=== PATIENT | female | born 1940 | race Caucasian/White ===

== ENCOUNTER → 2018-05-09 12:18 | Outpatient (CLI) | payer MEDICARE, SELFPAY ==
--- NOTE | 2018-05-09 | DI.MG.S_ITS ---
BILATERAL DIGITAL SCREENING MAMMOGRAM 3D/2D WITH CAD: 05/09/2018 CLINICAL: Routine screening. Family history of breast cancer. Comparison is made to exams dated: 05/01/2017 mammogram, 03/08/2016 mammogram, and 12/12/2014 mammogram - [facility]. There are scattered fibroglandular elements in both breasts. Current study was also evaluated with a Computer Aided Detection (CAD) system. There are benign vascular calcifications in both breasts. There are mole markers on both breasts. No significant masses, calcifications, or other findings are seen in either breast. There has been no significant interval change. IMPRESSION: There is no mammographic evidence of malignancy. A 1 year screening mammogram is recommended. This exam was interpreted at Station ID: [id number]. NOTE: For mammograms, a report in lay terms will be sent to the patient. Approximately 15% of breast malignancies will not be visualized mammographically. In the management of a palpable breast mass, a negative mammogram must not discourage biopsy of a clinically suspicious lesion. Electronically Signed By: Ki bonilla/angie:05/11/2018 09:12:00 letter sent: Normal Exam ACR BI-RADS Category 2: Benign Finding(s) 3342F
== END ==
PROVIDERS: Visit Provider Physician Assistant
DX: Z12.31 Encounter for screening mammogram for malignant neoplasm of breast (principal); Z80.3 Family history of malignant neoplasm of breast
CPT/HCPCS: 77063; 77067

== ENCOUNTER → 2018-05-19 14:47 | Outpatient (REF) | payer MEDICARE, SELFPAY ==
[2018-05-19 15:01] LABS: Add Manual Diff / Slide Review NO; Basophils Percent Auto 1.2 % (0-2); Eosinophils Percent Auto 4.2 % (2-4); Hematocrit 37.7 % (36-46); Hemoglobin 12.5 g/dL (12.0-16.0); Lymphocytes Percent Auto 12.2 % (25-40); Mean Corpuscular HGB Conc 33.1 % (30-36); Mean Corpuscular Hemoglobin 27.5 PG (26-34); Mean Corpuscular Volume 83.2 fL (80-100); Monocytes Percent Auto 8.1 % (3-14); Neutrophils Absolute Auto 7400 /uL (1500-7000); Neutrophils Percent Auto 74.3 % (50-75); Platelet Count 285 X10^3/uL (150-400); Red Blood Cell Count 4.53 X10^6/uL (4.0-5.2); Red Cell Distribution Width 14.6 % (11.6-14.8)
[2018-05-19 15:09] LABS: Amylase 34 U/L (30-110); Lipase 74 U/L (23-300)
== END ==
LOC: LAB 14:47
PROVIDERS: Visit Provider Physician Assistant
DX: R10.12 Left upper quadrant pain (principal)
CPT/HCPCS: 82150; 83690; 85025

== ENCOUNTER → 2019-05-20 09:20 | Outpatient (CLI) | payer MEDICARE, SELFPAY ==
--- NOTE | 2019-05-20 | DI.MG.S_ITS ---
BILATERAL DIGITAL SCREENING MAMMOGRAM 3D/2D WITH CAD: 05/20/2019 CLINICAL: Routine screening. Comparison is made to exams dated: 05/09/2018 mammogram, 05/01/2017 mammogram, and 03/08/2016 mammogram - [facility]. There are scattered fibroglandular elements in both breasts. Current study was also evaluated with a Computer Aided Detection (CAD) system. There are benign vascular calcifications in both breasts. There are mole markers on both breasts. No significant masses, calcifications, or other findings are seen in either breast. There has been no significant interval change. IMPRESSION: There is no mammographic evidence of malignancy. A 1 year screening mammogram is recommended. This exam was interpreted at Station ID: [id number]. NOTE: For mammograms, a report in lay terms will be sent to the patient. Approximately 15% of breast malignancies will not be visualized mammographically. In the management of a palpable breast mass, a negative mammogram must not discourage biopsy of a clinically suspicious lesion. Electronically Signed By: Alonso beck/angie:05/20/2019 11:12:42 letter sent: Normal Exam ACR BI-RADS Category 2: Benign Finding(s) 3342F
== END ==
PROVIDERS: Visit Provider Student in an Organized Health Care Education/Training Program
DX: Z12.31 Encounter for screening mammogram for malignant neoplasm of breast (principal)
CPT/HCPCS: 77063; 77067

== ENCOUNTER → 2020-05-29 15:34 | Outpatient (CLI) | payer OTHER, SELFPAY ==
--- NOTE | 2020-05-29 15:38 | DI.MG.S_ITS ---
BILATERAL DIGITAL SCREENING MAMMOGRAM 3D/2D WITH CAD: 05/29/2020 CLINICAL: Routine screening. Family history of breast cancer. Comparison is made to exams dated: 05/09/2018 mammogram, 05/01/2017 mammogram, 03/08/2016 mammogram, 12/12/2014 mammogram, and 05/20/2019 mammogram - [facility]. There are scattered fibroglandular elements in both breasts. Current study was also evaluated with a Computer Aided Detection (CAD) system. There are benign vascular calcifications in both breasts. There are mole markers on both breasts. No significant masses, calcifications, or other findings are seen in either breast. There has been no significant interval change. IMPRESSION: BENIGN There is no mammographic evidence of malignancy. A 1 year screening mammogram is recommended. This exam was interpreted at Station ID: [id number]. NOTE: For mammograms, a report in lay terms will be sent to the patient. Approximately 15% of breast malignancies will not be visualized mammographically. In the management of a palpable breast mass, a negative mammogram must not discourage biopsy of a clinically suspicious lesion. Electronically Signed By: Galdino wesley/angie:05/29/2020 16:53:45 letter sent: Normal Exam ACR BI-RADS Category 2: Benign Finding(s) 3342F
== END ==
PROVIDERS: Referring Provider Student in an Organized Health Care Education/Training Program; Visit Provider Student in an Organized Health Care Education/Training Program
DX: Z12.31 Encounter for screening mammogram for malignant neoplasm of breast (principal); Z80.3 Family history of malignant neoplasm of breast
CPT/HCPCS: 77063; 77067

== ENCOUNTER → 2020-10-03 13:21 | Outpatient (ROUT) | payer OTHER, SELFPAY ==
[2020-10-03 13:39] LABS: Alanine Aminotransferase 15 IU/L (<35); Albumin 3.9 g/dL (3.5-5.0); Albumin Globulin Ratio 1.6 (1.0-2.8); Alkaline Phosphatase 77 U/L (38-126); Aspartate Aminotransferase 26 IU/L (14-36); BUN Creatinine Ratio 21.5 (6-22); Bilirubin Total 0.6 mg/dL (0.2-1.3); Blood Urea Nitrogen 17 mg/dL (7-17); Calcium 9.3 mg/dL (8.4-10.2); Carbon Dioxide 29 mmol/L (22-32); Chloride 98 mmol/L (98-107); Cholesterol 177 mg/dL (140-199); Estimated Glomerular Filt Rate > 60.0 mL/min (>60); Globulin 2.5 g/dL (1.7-4.1); Glucose 104 mg/dL (80-110); HDL Cholesterol 63 mg/dL (40-60); HEMOLYSIS < 15 (0-50); LDL Cholesterol Calculated 94 mg/dL (<100); Potassium 4.3 mmol/L (3.4-5.1); Sodium 135 mmol/L (137-145); Total Protein 6.4 g/dL (6.3-8.2); Triglycerides 98 mg/dL (35-150)
== END ==
PROVIDERS: Visit Provider Student in an Organized Health Care Education/Training Program
DX: I10 Essential (primary) hypertension (principal); E78.49 Other hyperlipidemia; R73.01 Impaired fasting glucose
CPT/HCPCS: 80053; 80061

== ENCOUNTER → 2021-05-31 13:07 | Outpatient (CLI) | payer OTHER, SELFPAY ==
--- NOTE | 2021-05-31 13:10 | DI.MG.S_ITS ---
BILATERAL DIGITAL SCREENING MAMMOGRAM 3D/2D WITH CAD: 05/31/2021 CLINICAL: Routine screening. Family history of breast cancer. Comparison is made to exams dated: 05/29/2020 mammogram, 05/20/2019 mammogram, and 05/09/2018 mammogram - [facility]. There are scattered fibroglandular elements in both breasts. Current study was also evaluated with a Computer Aided Detection (CAD) system. There are benign vascular calcifications in both breasts. There are mole markers on both breasts. No significant masses, calcifications, or other findings are seen in either breast. There has been no significant interval change. IMPRESSION: BENIGN There is no mammographic evidence of malignancy. A 1 year screening mammogram is recommended. This exam was interpreted at Station ID: [id number]. NOTE: For mammograms, a report in lay terms will be sent to the patient. Approximately 15% of breast malignancies will not be visualized mammographically. In the management of a palpable breast mass, a negative mammogram must not discourage biopsy of a clinically suspicious lesion. Electronically Signed By: Alonso beck/angie:05/31/2021 15:11:35 letter sent: Normal Exam ACR BI-RADS Category 2: Benign Finding(s) 3342F
== END ==
PROVIDERS: Referring Provider Student in an Organized Health Care Education/Training Program; Visit Provider Student in an Organized Health Care Education/Training Program
DX: Z12.31 Encounter for screening mammogram for malignant neoplasm of breast (principal)
CPT/HCPCS: 77063; 77067

== ENCOUNTER → 2022-04-10 14:33 | Outpatient (CLI) | payer OTHER, SELFPAY ==
--- NOTE | 2022-04-10 | DI.RAD.S_ITS ---
PROCEDURE: XR KNEE LT 3V INDICATIONS: left knee pain TECHNIQUE: 3 views of the knee were acquired. COMPARISON: [facility], , KNEE 1-2 VIEWS RIGHT, 12/16/2011, 14:49. FINDINGS: Bones: Partially seen right knee arthroplasty in expected position. Moderate degenerative changes of the left knee. No acute fracture or dislocation. The lateral compartment is preferentially affected. Soft tissues: Small left knee joint effusion. IMPRESSION: Moderate left knee arthrosis preferentially affecting the lateral compartment. Small knee joint effusion. If there is high concern for further derangement, consider MRI evaluation. Dictated by: Marcin Fiore M.D. on 04/10/2022 at 16:06 Approved by: Marcin Fiore M.D. on 04/10/2022 at 16:07
== END ==
PROVIDERS: PCP Student in an Organized Health Care Education/Training Program; Referring Provider Student in an Organized Health Care Education/Training Program; Visit Provider Student in an Organized Health Care Education/Training Program
DX: M17.12 Unilateral primary osteoarthritis, left knee (principal); M25.462 Effusion, left knee; M25.562 Pain in left knee
CPT/HCPCS: 73562

== ENCOUNTER → 2022-06-06 11:33 | Outpatient (CLI) | payer OTHER, SELFPAY ==
--- NOTE | 2022-06-06 | DI.MG.S_ITS ---
BILATERAL DIGITAL SCREENING MAMMOGRAM 3D/2D WITH CAD: 06/06/2022 CLINICAL: Routine screening. Family history of breast cancer. Comparison is made to exams dated: 05/31/2021 mammogram, 05/29/2020 mammogram, and 05/20/2019 mammogram - [facility]. There are scattered areas of fibroglandular density in both breasts (category b / 25%-50% glandular tissue). Current study was also evaluated with a Computer Aided Detection (CAD) system. There are benign vascular calcifications in both breasts. There are mole markers on both breasts. No significant masses, calcifications, or other findings are seen in either breast. There has been no significant interval change. IMPRESSION: BENIGN There is no mammographic evidence of malignancy. A 1 year screening mammogram is recommended. Based on the Tyrer Cuzick model (a risk assessment model) the patient's lifetime risk is 0.5% and her 10 year risk is 0.0%. According to the ACR, ACS, and NCCN guidelines, an annual breast MRI exam along with mammogram is recommended if the patient's lifetime risk is 20% or greater. This exam was interpreted at Station ID: [id number]. NOTE: For mammograms, a report in lay terms will be sent to the patient. Approximately 15% of breast malignancies will not be visualized mammographically. In the management of a palpable breast mass, a negative mammogram must not discourage biopsy of a clinically suspicious lesion. Electronically Signed By: Marcin salcido/angie:06/06/2022 12:31:12 letter sent: Normal Exam ACR BI-RADS Category 2: Benign Finding(s) 3342F
== END ==
PROVIDERS: PCP Student in an Organized Health Care Education/Training Program; Referring Provider Student in an Organized Health Care Education/Training Program; Visit Provider Student in an Organized Health Care Education/Training Program
DX: Z12.31 Encounter for screening mammogram for malignant neoplasm of breast (principal); Z80.3 Family history of malignant neoplasm of breast
CPT/HCPCS: 77063; 77067

== ENCOUNTER 2022-09-18 15:36 | Emergency (ER) | payer OTHER, SELFPAY ==
[2022-09-18 15:45] VITALS: BP 186/96; PULSE 74; RESP 16; TEMP 36.7; O2SAT 97; BMI 25.4
--- NOTE | 2022-09-18 15:53 | ED_ITS ---
HPI - Fall <Angelito Chan PA-C - Last Filed: 09/18/22 17:33> General Chief Complaint: Fall Stated Complaint: Facial lac/bruising after fall Time Seen by Provider: 09/18/22 15:51 History of Present Illness HPI Narrative: This is a 82-year-old female presents emergency department due to tripping over a rug earlier this morning and falling and hitting her face on the ground. She is not on blood thinners. She would not lose consciousness. She denies any other pain to the rest of her body. She is only concerned with the bruising around her eyes as she was wearing glasses. No changes in vision and no other concerns. Related Data Home Medications Medication Instructions Recorded Confirmed LEVOTHYROXINE SODIUM 100 mcg PO QDAY@0600 ##0 11/27/11 albuterol sulfate 90 mcg/actuation 2 puff INH PRN ##8.5 11/27/11 aerosol inhaler (Proventil HFA) beclomethasone dipropionate 80 1 puff INH BID #1 inh 11/27/11 mcg/actuation aerosol inhaler (Qvar) ibuprofen 200 mg tablet 2 tabs PO BID ##0 11/27/11 omeprazole 20 mg capsule,delayed 20 mg PO Q DAY ##0 11/27/11 release paroxetine HCl 10 mg tablet (Paxil) mg PO HS ##0 11/27/11 zolpidem 5 mg tablet 5 mg PO HSP ##0 11/27/11 Allergies Allergy/AdvReac Type Severity Reaction Status Date / Time No Known Drug Allergies Allergy Unknown Verified 09/18/22 15:51 codeine AdvReac Mild N/V Verified 09/18/22 15:51 tramadol AdvReac Mild NAUSEA Verified 09/18/22 15:51 Review of Systems <Angelito Chan PA-C - Last Filed: 09/18/22 17:33> Review of Systems Narrative: GENERAL: Denies chills, fatigue, malaise, fever, sweats. HEENT: Facial pain, Denies sinus pain, ear pain, sore throat, difficulty swallowing, dizziness. RESPIRATORY: Denies dyspnea, cough, wheezing, hemoptysis, sputum. CARDIOVASCULAR: Denies chest pain, palpitations, orthopnea, edema, GASTROINTESTINAL: Denies nausea, vomiting, abdominal pain, diarrhea, constipation, melena. : Denies dysuria, frequency, incontinence, hematuria, urinary retention. MUSCULOSKELETAL: denies weakness, joint pain, or bony pain SKIN: Denies rash, skin lesions, or other NEUROLOGIC: Denies weakness, headache, numbness, change in speech, confusion, seizures, incoordination. PSYCHIATRIC: No concerning psychosocial issues. 12 point review of systems is negative except for those stated above Patient History <Angelito Chan PA-C - Last Filed: 09/18/22 17:33> Social History Smoking Status: Never smoker Exam <Angelito Chan PA-C - Last Filed: 09/18/22 17:33> Narrative Exam Narrative: GENERAL: Well-developed patient, in mild distress. HEAD: Mild tenderness to palpation to the bridge of the nose as well as a bilateral maxillary bones EYES: Pupils equal round and reactive. Extraocular motions intact. No scleral icterus. No injection or drainage. ENT: Nose without bleeding, purulent drainage. Throat without erythema, tonsillar hypertrophy or exudate. Airway patent. NECK: Trachea midline. Non tender CARDIOVASCULAR: Regular rate and rhythm without murmurs, gallops, or rubs. RESPIRATORY: Clear to auscultation. Breath sounds equal bilaterally. No wheezes, rales, or rhonchi. GASTROINTESTINAL: Abdomen soft, non-tender, nondistended. EXTREMITIES: No edema or joint tenderness. BACK: Nontender without deformity or crepitance. No flank tenderness. NEURO: AOx3. Cranial nerves 2-12 intact SKIN: Ecchymosis of the bridge of nose. Mild edema to the upper lip, no breaks in the skin Initial Vital Signs Initial Vital Signs: Vital Signs Temperature 98.0 F 09/18/22 15:45 Pulse Rate 74 09/18/22 15:45 Respiratory Rate 16 09/18/22 15:45 Blood Pressure 186/96 H 09/18/22 15:45 Pulse Oximetry 97 09/18/22 15:45 Oxygen Delivery Method Room Air 09/18/22 15:45 <Shaheed Colbert MD - Last Filed: 09/26/22 03:28> Initial Vital Signs Initial Vital Signs: Vital Signs Temperature 98.0 F 09/18/22 15:45 Pulse Rate 74 09/18/22 15:45 Respiratory Rate 16 09/18/22 15:45 Blood Pressure 186/96 H 09/18/22 15:45 Pulse Oximetry 97 05/10/23 15:45 Oxygen Delivery Method Room Air 09/18/22 15:45 Course <Angelito Chan PA-C - Last Filed: 09/18/22 17:33> Orders Ordered: ED Orders 09/18/22 16:10 CT facial bones wo con Stat CT head/brain wo con Stat Vital Signs Vital signs: Vital Signs - 8 hr 09/18/22 15:45 09/18/22 16:56 Temperature 98.0 F Pulse Rate 74 75 Respiratory Rate 16 Blood Pressure 186/96 H 196/93 H Pulse Oximetry 97 98 Oxygen Delivery Method Room Air Room Air <Shaheed Colbert MD - Last Filed: 09/26/22 03:28> Orders Ordered: ED Orders 09/18/22 16:10 CT facial bones wo con Stat CT head/brain wo con Stat Vital Signs Vital signs: Vital Signs - 8 hr 09/18/22 15:45 09/18/22 16:56 Temperature 98.0 F Pulse Rate 74 75 Respiratory Rate 16 Blood Pressure 186/96 H 196/93 H Pulse Oximetry 97 98 Oxygen Delivery Method Room Air Room Air MDM - Fall <Angelito Chan PA-C - Last Filed: 09/18/22 17:33> Imaging Data CT face: Radiologist's Impression: [place] [address] CT Scan Report Signed Patient: Kaylynn Wheeler MR#: [id number] : 1940 Acct:[id number] Age/Sex: 82 / F Date of Service: 09/18/22 Loc: ED Accession Number: [id number] ?? Procedure: CT facial bones wo con Ordering Provider: Angelito Chan P.A-C PROCEDURE:? CT FACIAL BONES WO CON ? INDICATIONS:? Fall on face ? TECHNIQUE:? Noncontrast 2.5 mm thick axial images acquired from the mandible through the frontal sinuses, with coronal and sagittal reformatting.? For radiation dose reduction, the following was used:? automated exposure control, adjustment of mA and/or kV according to patient size.? ? COMPARISON:? [facility], CT, CT HEAD/BRAIN WO CON, 09/18/2022, 16:16. ? FINDINGS:? Image quality:? There is artifact associated with the metallic hardware. ? Artifact from the metallic hardware is reduced by metal reconstruction algorithm.? ? Bones and teeth:? Orbital yanez are intact.? Sinus yanez show no fracture or deformity.? Nasal bones and septum are intact.? Chronic mild leftward nasal septal deviation can be seen.? Visualized portions of the mandible demonstrate no fractures or sub luxation.? Zygomatic arches are intact.? Pterygoid plates are intact.? Visualized portions of the skull base and auditory canals are intact.? ? At least moderate cervical spine degenerative change is partially seen. ? Sinuses:? There is layering blood within the right maxillary sinus.? Mild areas of mucosal thickening can be seen elsewhere within paranasal sinuses. ? The ostiomeatal complexes are patent, yet they are constitutionally narrowed, with bilateral Jeb cells.? ? Soft tissues:? No edema, masses, or fluid collections.? No enlarged lymph nodes.? No soft tissue lacerations or debris.? ? Vascular:? Visualized vascular structures appear normal in the absence of contrast.? Bony vascular foramina and canals are intact.? IMPRESSION:? No displaced facial bone fracture can be seen. ? Layering blood can be seen within the right maxillary sinus. ? Constitutionally narrowed ostiomeatal complexes noted. ? ? Dictated by: Aime Hammond M.D. on 09/18/2022 at 15:39 ? ? Approved by: Aime Hammond M.D. on 09/18/2022 at 15:41 ? CT scan - head: Radiologist's Impression: [address] [address] [address] Scan Report Signed Patient: Kaylynn Wheeler MR#: [id number] : 1940 Acct:[id number] Age/Sex: 82 / F Date of Service: 09/18/22 Loc: ED Accession Number: [id number] ?? Procedure: CT head/brain wo con Ordering Provider: Angelito Chan P.A-C PROCEDURE:? CT HEAD/BRAIN WO CON ? INDICATIONS:? Fall hit head ? TECHNIQUE:? Noncontrast 4.5 mm thick angled axial sections acquired from the foramen magnum to the vertex, with coronal and sagittal reformats.? For radiation dose reduction, the following was used:? automated exposure control, adjustment of mA and/or kV according to patient size.? ? COMPARISON:? [facility], CT, CT FACIAL BONES WO CON, 09/18/2022, 16:16. ? FINDINGS:? Image quality:? Excellent.? ? CSF spaces:? Basal cisterns are patent.? No extra-axial fluid collections.? The ventricles are symmetric in size and shape.? ? Brain:? No intracranial bleeds or masses.? There is cerebral volume loss for age, with resultant ventricular and sulcal prominence.? There are periventricular and deep white matter chronic small vessel ischemic changes.? There is intracranial internal carotid artery atherosclerosis.? ? Skull and face:? Calvarium and visualized facial bones appear intact, without suspicious lesions.? Incidental note is made of hyperostosis frontalis. This is not considered to be pathologic in a woman of this age. ? Sinuses:? There is layering blood seen within the right maxillary sinus.? The visualized paranasal sinuses are otherwise unremarkable. No abnormal fluid is seen within the mastoid air cells. ? ? IMPRESSION:? No acute intracranial hemorrhage is seen.? ? No acute intracranial process is seen.? ? Air blood level noted within the right maxillary sinus. ? ? Dictated by: Aime Hammond M.D. on 09/18/2022 at 15:37 ? ? Approved by: Aime Hammond M.D. on 09/18/2022 at 15:39 ? MDM Narrative Medical decision making narrative: MDM * differential diagnosis includes but not limited to facial bone fracture, intracranial bleed, soft tissue injury * Prior records reviewed: Patient was seen just prior to arrival at the walk-in clinic. Tripped on a carpet in her living room and hit her face on the ground. No loss of consciousness. Patient was advised to come to emergency department for further evaluation. * My lab interpretation: None obtained * My imgaing interpretation: CT face showed no acute fractures. CT head showed no intracranial bleeds or other acute processes. * Clinical Decision Rules/Scores evaluated: None * Independent discussions with: None ED Course: This is a 82-year-old female presents to the emergency department due to falling and hitting her head. CT head and face showed no acute fractures and no intracranial bleeding. She is not on blood thinners. Patient denies any neck pain with any kind of palpation and had a complete range of motion without any pain. No CT neck ordered. We will discharge with instructions for symptomatic management. She also had a completely normal neurologic exam and very low concern for any kind of intracranial process. Shared Decision Making: Discussed plan with the patient who is comfortable with the plan. Social Considerations: None Disposition: Discharged to home Discharge Plan Departure Patient Disposition: Home Clinical Impression: Fall Activity Restrictions/Additional Instructions: Thank you for coming to the [facility] Emergency Department today. Your CTs came back unremarkable. The CT face showed no evidence of any kind of facial bone fracture. The CT head showed no evidence of any kind of intracranial bleeding. The bruising may continue for some time. May use ice as needed to help with the pain. I hope you feel better soon. Prescriptions: No Action beclomethasone dipropionate [Qvar] 80 MCG/PUFF aerosol 1 puff INH BID Qty: 1 albuterol sulfate [Proventil HFA] 90 MCG/PUFF HFA aerosol inhaler 2 puff INH PRN Qty: 8.5 ibuprofen 200 MG tablet 2 tabs PO BID Qty: 0 omeprazole 20 MG capsule,delayed release(DR/EC) 20 mg PO Q DAY Qty: 0 LEVOTHYROXINE SODIUM 100 mcg PO QDAY@0600 Qty: 0 paroxetine HCl [Paxil] 10 MG tablet PO HS Qty: 0 zolpidem 5 MG tablet 5 mg PO HSP Qty: 0 Referrals: Anya Luna, MEGHAN [Primary Care Provider] - Stand Alone Forms: Patient Portal/API <Shaheed Colbert MD - Last Filed: 09/26/22 03:28> Cosign ED Attending Cosignature Attestation: I was immediately available in the department for consultation. ?This documentation has been reviewed and I agree with assessment and plan. Supervised by Shaheed Colbert MD
--- NOTE | 2022-09-18 16:10 | DI.CT.S_ITS ---
PROCEDURE: CT FACIAL BONES WO CON INDICATIONS: Fall on face TECHNIQUE: Noncontrast 2.5 mm thick axial images acquired from the mandible through the frontal sinuses, with coronal and sagittal reformatting. For radiation dose reduction, the following was used: automated exposure control, adjustment of mA and/or kV according to patient size. COMPARISON: [facility], CT, CT HEAD/BRAIN WO CON, 09/18/2022, 16:16. FINDINGS: Image quality: There is artifact associated with the metallic hardware. Artifact from the metallic hardware is reduced by metal reconstruction algorithm. Bones and teeth: Orbital yanez are intact. Sinus yanez show no fracture or deformity. Nasal bones and septum are intact. Chronic mild leftward nasal septal deviation can be seen. Visualized portions of the mandible demonstrate no fractures or subluxation. Zygomatic arches are intact. Pterygoid plates are intact. Visualized portions of the skull base and auditory canals are intact. At least moderate cervical spine degenerative change is partially seen. Sinuses: There is layering blood within the right maxillary sinus. Mild areas of mucosal thickening can be seen elsewhere within paranasal sinuses. The ostiomeatal complexes are patent, yet they are constitutionally narrowed, with bilateral Jeb cells. Soft tissues: No edema, masses, or fluid collections. No enlarged lymph nodes. No soft tissue lacerations or debris. Vascular: Visualized vascular structures appear normal in the absence of contrast. Bony vascular foramina and canals are intact. IMPRESSION: No displaced facial bone fracture can be seen. Layering blood can be seen within the right maxillary sinus. Constitutionally narrowed ostiomeatal complexes noted. Dictated by: Aime Hammond M.D. on 09/18/2022 at 15:39 Approved by: Aime Hammond M.D. on 09/18/2022 at 15:41
--- NOTE | 2022-09-18 16:10 | DI.CT.S_ITS ---
PROCEDURE: CT HEAD/BRAIN WO CON INDICATIONS: Fall hit head TECHNIQUE: Noncontrast 4.5 mm thick angled axial sections acquired from the foramen magnum to the vertex, with coronal and sagittal reformats. For radiation dose reduction, the following was used: automated exposure control, adjustment of mA and/or kV according to patient size. COMPARISON: [facility], CT, CT FACIAL BONES WO CON, 09/18/2022, 16:16. FINDINGS: Image quality: Excellent. CSF spaces: Basal cisterns are patent. No extra-axial fluid collections. The ventricles are symmetric in size and shape. Brain: No intracranial bleeds or masses. There is cerebral volume loss for age, with resultant ventricular and sulcal prominence. There are periventricular and deep white matter chronic small vessel ischemic changes. There is intracranial internal carotid artery atherosclerosis. Skull and face: Calvarium and visualized facial bones appear intact, without suspicious lesions. Incidental note is made of hyperostosis frontalis. This is not considered to be pathologic in a woman of this age. Sinuses: There is layering blood seen within the right maxillary sinus. The visualized paranasal sinuses are otherwise unremarkable. No abnormal fluid is seen within the mastoid air cells. IMPRESSION: No acute intracranial hemorrhage is seen. No acute intracranial process is seen. Air blood level noted within the right maxillary sinus. Dictated by: Aime Hammond M.D. on 09/18/2022 at 15:37 Approved by: Aime Hammond M.D. on 09/18/2022 at 15:39
[2022-09-18 16:56] VITALS: BP 196/93; PULSE 75; O2SAT 98
== END 2022-09-18 17:02 | disposition home or self-care (01) ==
PROVIDERS: Emergency Provider Physician Assistant Medical; PCP Student in an Organized Health Care Education/Training Program
DX: S09.90XA Unspecified injury of head, initial encounter (principal); W01.0XXA Fall on same level from slipping, tripping and stumbling without subsequent striking against object, initial encounter
CPT/HCPCS: 70450; 70486; 99283; 99284

== ENCOUNTER → 2023-06-28 12:34 | Outpatient (CLI) | payer OTHER, SELFPAY ==
--- NOTE | 2023-06-28 | DI.MG.S_ITS ---
BILATERAL DIGITAL SCREENING MAMMOGRAM 3D/2D WITH CAD: 06/28/2023 CLINICAL: Routine screening. Family history of breast cancer. Comparison is made to exams dated: 06/06/2022 mammogram, 05/31/2021 mammogram, and 05/29/2020 mammogram - [facility]. There are scattered areas of fibroglandular density in both breasts (category b / 25%-50% glandular tissue). Current study was also evaluated with a Computer Aided Detection (CAD) system. There are benign vascular calcifications in both breasts. No significant masses, calcifications, or other findings are seen in either breast. There has been no significant interval change. IMPRESSION: BENIGN There is no mammographic evidence of malignancy. A 1 year screening mammogram is recommended. Based on the Tyrer Cuzick model (a risk assessment model) the patient's lifetime risk is 0.2% and her 10 year risk is 0.0%. According to the ACR, ACS, and NCCN guidelines, an annual breast MRI exam along with mammogram is recommended if the patient's lifetime risk is 20% or greater. This exam was interpreted at Station ID: [id number]. NOTE: For mammograms, a report in lay terms will be sent to the patient. Approximately 15% of breast malignancies will not be visualized mammographically. In the management of a palpable breast mass, a negative mammogram must not discourage biopsy of a clinically suspicious lesion. Electronically Signed By: Marcin salcido/angie:06/30/2023 13:58:05 letter sent: Normal Exam ACR BI-RADS Category 2: Benign Finding(s) 3342F
== END ==
LOC: MAMMO 12:35
PROVIDERS: PCP Student in an Organized Health Care Education/Training Program; Referring Provider Student in an Organized Health Care Education/Training Program; Visit Provider Student in an Organized Health Care Education/Training Program
DX: Z12.31 Encounter for screening mammogram for malignant neoplasm of breast (principal); Z80.3 Family history of malignant neoplasm of breast; R92.323 Mammographic fibroglandular density, bilateral breasts
CPT/HCPCS: 77063; 77067

== ENCOUNTER → 2024-03-01 17:52 | Outpatient (CLI) | payer MEDICARE, SELFPAY ==
--- NOTE | 2024-03-01 | DI.RAD.S_ITS ---
PROCEDURE: XR LUMBAR SPINE 2-3V INDICATIONS: BACK PAIN TECHNIQUE: 3 views of the lumbar spine were acquired. COMPARISON: [facility], , L-SPINE 2-3 VIEWS, 11/21/2015, 10:30. FINDINGS: Bones: 5 [id number] vertebrae are present. Slight leftward curvature the lumbar spine. Stable grade 1 anterolisthesis of L3 on L4. Severe disc height loss at all levels, progressed from prior. Worsening opposing endplate sclerosis at L1-2 and L4-5. Diffuse facet arthrosis. No vertebral body compression fractures. No suspicious bony lesions. Soft tissues: Overlying bowel gas pattern is normal. No suspicious soft tissue calcifications. IMPRESSION: Severe, multilevel degenerative disc disease and diffuse facet arthrosis, progressed since 2016. Dictated by: Alberto Tsang M.D. on 03/01/2024 at 22:00 Approved by: Alberto Tsang M.D. on 03/01/2024 at 22:01
== END ==
PROVIDERS: PCP Family Medicine; Referring Provider Family Medicine; Visit Provider Family Medicine
DX: M51.360 Other intervertebral disc degeneration, lumbar region with discogenic back pain only (principal); M47.816 Spondylosis without myelopathy or radiculopathy, lumbar region; G89.29 Other chronic pain
CPT/HCPCS: 72100

== ENCOUNTER → 2024-05-01 09:38 | Outpatient (CLI) | payer MEDICARE, SELFPAY ==
--- NOTE | 2024-05-01 09:40 | DI.MRI.S_ITS ---
PROCEDURE: MR THORACIC SPINE WO/W CON INDICATIONS: SPINAL MENINGIOMA TECHNIQUE: Noncontrast sagittal T1 spin echo and T2 fast spin echo, sagittal STIR, axial T1 and T2 fast spin echo through the thoracic spine. After the administration of contrast, axial and sagittal T1 spin echo with fat saturation through the thoracic spine. COMPARISON: None available. If and when prior studies become available, an addendum report can be generated. FINDINGS: Image quality: Excellent. Alignment and curvature: There is normal bony alignment. Marrow: Focal T6 marrow replacement with enhancement extends minimally into the right pedicle. No compression fracture. C7 hemangioma. Spinal cord: There is an irregular intrathecal extramedullary mass lesion with irregular enhancement noted at the T2-3 level along the right side of the central canal displacing the cord to the left with deformation of the cord. No cord edema. Paraspinous soft tissues: Right thyroid or parathyroid nodules with enhancement measure up to 3.5 cm. Focal enhancing subcutaneous nodule in the midline measures 7 mm Miscellaneous: Small T1-2 disc bulge with mild central stenosis. IMPRESSION: Irregular intrathecal extramedullary mass with irregular enhancement displaces the cord. No cord edema. Overall characteristics would certainly be atypical for meningioma T6 marrow replacement. Differential metastatic lesion versus atypical hemangioma. Consider follow-up bone scan Bulky right thyroid or parathyroid nodules with enhancement Approved by: Beto Matt M.D. on 05/03/2024 at 13:36
== END ==
LOC: MRI 09:39
PROVIDERS: PCP Family Medicine; Referring Provider Family Medicine; Visit Provider Family Medicine
DX: D32.1 Benign neoplasm of spinal meninges (principal)
CPT/HCPCS: 72157; A9579

== ENCOUNTER → 2024-06-01 08:41 | Outpatient (CLI) | payer MEDICARE, SELFPAY ==
--- NOTE | 2024-06-01 08:42 | DI.NM.S_ITS ---
PROCEDURE: NM BONE SCAN WHOLE BODY RADIOPHARMACEUTICAL: 22 mCi Tc-99m MDP IV. INDICATIONS: SPINAL MENINGIOMA TECHNIQUE: Delayed whole-body scintigrams were obtained approximately 3-4 hours after intravenous injection of radiotracer. Anterior and posterior views were acquired from vertex to feet. Additional left and right oblique views of the thoracic spine were obtained. COMPARISON: [facility], MR, MR THORACIC SPINE WO/W CON, 05/01/2024, 10:04. FINDINGS: Heterogeneous uptake throughout the spine, most consistent with degenerative changes. No focal uptake within the region of T6. No focal uptake within the region of T2-T3 spinal lesion. More focal increased uptake involving L4 and L5. Additional degenerative uptake elsewhere including the shoulders, hands, knees and feet. IMPRESSION: No uptake within the region of the T2-T3 spinal lesion or the T6 vertebral body lesion. Diffuse heterogeneous uptake throughout the spine is likely degenerative in etiology. More focal increased uptake at L4 and L5, likely degenerative, consider dedicated lumbar spine imaging for further evaluation. Dictated by: Geovani Martins M.D. on 06/01/2024 at 15:31 Approved by: Geovani Martins M.D. on 06/01/2024 at 15:48
== END ==
PROVIDERS: PCP Family Medicine; Referring Provider Family Medicine; Visit Provider Family Medicine
DX: D32.1 Benign neoplasm of spinal meninges (principal)
CPT/HCPCS: 78306; A9503

== ENCOUNTER → 2024-07-24 09:39 | Outpatient (CLI) | payer MEDICARE, SELFPAY ==
--- NOTE | 2024-07-24 09:39 | DI.MG.S_ITS ---
MM screening mammo BI: 07/24/2024. BI-RADS: 2 CLINICAL: 84-year old female for bilateral screening mammogram. No Tyrer-Cuzick risk score calculation due to patient's age being over 85 years old. No personal or first-degree family history of breast cancer. PRIOR EXAMS 06/28/2023, 06/06/2022, 05/31/2021, 05/29/2020, 05/20/2019, 05/09/2018, 05/01/2017, 03/08/2016, 12/12/2014. MAMMOGRAPHY TECHNIQUE: 2D and 3D (tomosynthesis) digital mammographic views obtained, with additional images as needed for full coverage. Current study was also evaluated with a Computer Aided Detection (CAD) system. DENSITY B. There are scattered areas of fibroglandular density. MAMMOGRAPHY FINDINGS Bilateral: Benign-appearing calcifications noted. There are no suspicious masses, calcifications, or other findings in the breast. No significant change from comparison. IMPRESSION: * No evidence of malignancy with benign findings. RECOMMENDATIONS Bilateral * Annual screening mammography. OVERALL ASSESSMENT CATEGORY BI-RADS-2: Benign. The [employer] recommends annual screening mammography beginning at age 40 for women with average risk of breast cancer. ELECTRONICALLY SIGNED: Sally Napoles M.D. on 07/26/2024 at 02:26:29 PM PT Interpreting Station ID: [id number]
== END ==
PROVIDERS: PCP Family Medicine; Referring Provider Family Medicine; Visit Provider Family Medicine
DX: Z12.31 Encounter for screening mammogram for malignant neoplasm of breast (principal)
CPT/HCPCS: 77063; 77067

== ENCOUNTER → 2024-10-18 10:41 | Outpatient (CLI) | payer MEDICARE, SELFPAY ==
--- NOTE | 2024-10-18 10:43 | DI.CT.S_ITS ---
PROCEDURE: CT ANGIO CHEST INDICATIONS: AFIB TECHNIQUE: After the administration of intravenous contrast, 3 mm thick sections acquired from the pulmonary apices to the posterior costophrenic angles. 3-dimensional maximum intensity projection (MIP) coronal reformats were then acquired parallel to the pulmonary veins. For radiation dose reduction, the following was used: automated exposure control, adjustment of mA and/or kV according to patient size. COMPARISON: None. FINDINGS: Image quality: Excellent. Pulmonary veins: For pulmonary veins are identified. * Right superior pulmonary vein: 2.2 cm diameter, 1.4 cm from ostium to 1st order branch. * Right inferior pulmonary vein: 1.7 cm diameter, 0.8 cm from ostium to 1st order branch. * Left superior pulmonary vein: 1.6 cm diameter, 1.5 cm from ostium to 1st order branch. * Left inferior pulmonary vein: 1.4 cm diameter, 1.2 cm from ostium to 1st order branch. * Supernumerary pulmonary veins: none. Lungs and pleura: Atelectasis in the dependent portions of the lungs. Trace bilateral pleural effusions. No pneumothorax. Central and peripheral airways are patent. Mediastinum: Heart is enlarged without pericardial effusion. No mediastinal or hilar adenopathy. Thoracic aorta and pulmonary arteries are normal in caliber and enhancement. Esophagus is normal in caliber, without hiatal hernia. Bones and chest wall: No suspicious bony lesions. Ribs and thoracic spine appear intact throughout. Spine degenerative disc disease and facet arthropathy. No axillary or supraclavicular adenopathy. Thyroid gland is normal. Abdomen: No acute disease process in the visualized abdomen. Gallbladder is surgically absent. IMPRESSION: Trace bilateral pleural effusions. Otherwise, no acute disease process. No pulmonary embolus or aortic dissection. Pulmonary veins as detailed above. Dictated by: Josy Galeano MD, PhD on 10/19/2024 at 10:28 Approved by: Josy Galeano MD, PhD on 10/19/2024 at 10:37
== END ==
LOC: CT 10:42
PROVIDERS: PCP Nurse Practitioner Family; Referring Provider Physician Assistant; Visit Provider Physician Assistant
DX: I48.91 Unspecified atrial fibrillation (principal); I51.7 Cardiomegaly; Z90.49 Acquired absence of other specified parts of digestive tract
CPT/HCPCS: 71275; Q9967

== ENCOUNTER → 2025-01-26 13:47 | Outpatient (CLI) | payer MEDICARE, SELFPAY ==
--- NOTE | 2025-01-26 13:48 | DI.ECHO.S_ITS ---
[place] [facility] : : [id number] : : [place] : : [id number] : : Phone: [phone] Echocardiogram Report + + :Name: NANNETTE MULLEN Study Date: 01/26/2025 Height: 66.5 in: :[facility] ReadingLocation: Weight: 155 lb : : Gender: Female BSA: 1.8 m2 : :: 1940 Age: 84 yrs BP: 147/90 mmHg: :Reason For Study: PALPITATIONS : :Ordering Physician: FAROOQ, : :GORDON Performed By: Sara Mayo : :Referring: GORDON TRIVEDI : + + Interpretation Summary The patient was in atrial fibrillation with heart rates between 64-80 bpm during the exam. The ejection fraction is estimated to be 60-65%. Diastolic function is indeterminate. The left atrium is severely dilated. The right ventricle is mildly dilated. The right ventricular systolic function is normal. The right atrium is moderately dilated. There is moderate mitral regurgitation. There is mild aortic regurgitation. There is mild to moderate tricuspid regurgitation. The right ventricular systolic pressure is estimated to be at least 44 mmHg based on an estimated right atrial pressure of 8 mm Hg. The ascending aorta is moderately enlarged. Compared to the prior study 04/29/2024, there has been an increase in the mitral and tricuspid regurgitation and both atria have increased in size. Procedure: A two-dimensional transthoracic echocardiogram with color flow and Doppler was performed. The study quality was technically adequate. Comparison is made with the echocardiogram of 04/29/2024. The patient was in atrial fibrillation with heart rates between 64-80 bpm during the exam. Left Ventricle: The left ventricle is normal in size. Proximal septal thickening is noted. The ejection fraction is estimated to be 60-65%. Diastolic function is indeterminate. Right Ventricle: The right ventricle is mildly dilated. The right ventricular systolic function is normal. Atria: The left atrium is severely dilated. The right atrium is moderately dilated. There is no Doppler evidence for an interatrial shunt. Mitral Valve: There is mild mitral annular calcification. The mitral valve leaflets appear mildly thickened. There is moderate mitral regurgitation. Aortic Valve: The aortic valve is trileaflet. The aortic valve opens well. The aortic valve is slightly calcified. There is no aortic valve stenosis. There is mild aortic regurgitation. Tricuspid Valve: The tricuspid valve leaflets are thin and pliable. There is mild to moderate tricuspid regurgitation. Eccentric jet. The right ventricular systolic pressure is estimated to be at least 44 mmHg based on an estimated right atrial pressure of 8 mm Hg. Pulmonic Valve: The pulmonic valve leaflets are thin and pliable; valve motion is normal. There is mild pulmonic regurgitation. Great Vessels: The aortic root is normal size. The ascending aorta is moderately enlarged. The IVC is dilated (diameter is greater than 2.1 cm) yet it collapses greater than 50% with a sniff. This suggests a right atrial pressure of 8 mm Hg. Pericardium/ Pleura There is no pericardial effusion. There is no pleural effusion. MMode/2D Measurements & Calculations LVIDd: 4.4 cm LVOT diam: 2.1 cm LVIDs: 2.9 cm Ao root diam: 3.5 cm FS: 34.4 % asc Aorta Diam: 4.6 cm EPSS: 0.65 cm Ao Arch Diam (Prox Trans): 2.9 cm IVSd: 1.0 cm LVPWd: 0.81 cm LV cuenca. diameter/BSA (cm/m^2): 2.4 LV sys. diameter/BSA (cm/m^2): 1.6 LA A2 area: 30.8 cm2 RA long axis: 6.2 cm LA A4 area: 27.5 cm2 RA area: 24.6 cm2 LA length (vol): 6.5 cm RA vol: 83.1 ml LA vol: 111.1 ml RA : 46.1 ml/m2 LA vol index: 61.6 ml/m2 IVC diam: 2.3 cm RVD1 (basal): 4.3 cm TAPSE: 1.7 cm Doppler Measurements & Calculations Ao V2 max: 121.0 cm/sec LVOT Max Preet: 72.3 cm/sec Ao V2 mean: 75.7 cm/sec LV V1 max P.1 mmHg Ao max P.9 mmHg LV V1 VTI: 11.7 cm Ao mean P.7 mmHg CHLOE(I,D): 2.1 cm2 Ao V2 VTI: 19.5 cm CHLOE(V,D): 2.1 cm2 sev ratio: 0.60 CHLOE indexed to BSA (cm^2/m^2): 1.2 AI P1/2t: 787.6 msec AI dec slope: 177.2 cm/sec2 MV E max preet: 93.7 cm/sec TR max preet: 301.4 cm/sec MV A max preet: 41.7 cm/sec TR max P.3 mmHg MV E/A: 2.2 PA V2 max: 73.6 cm/sec Med Peak E' Preet: 7.7 cm/sec PA V2 mean: 49.1 cm/sec E/E' med: 12.1 PA mean P.1 mmHg Lat Peak E' Preet: 11.3 cm/sec PA pr(Accel): 49.0 mmHg E/E' lat: 8.3 E/e' average: 10.2 MV dec time: 0.15 sec MR ERO: 0.17 cm2 MR PISA: 2.9 cm2 SV(LVOT): 41.8 ml MR flow rate: 91.1 cm3/sec MR PISA radius: 0.68 cm Reading Physician:03:50 PM
== END ==
LOC: ECHO 13:48
PROVIDERS: PCP Nurse Practitioner Family; Referring Provider Nurse Practitioner Family; Visit Provider Nurse Practitioner Family
DX: I08.3 Combined rheumatic disorders of mitral, aortic and tricuspid valves (principal); R00.2 Palpitations; R06.02 Shortness of breath; I77.89 Other specified disorders of arteries and arterioles
CPT/HCPCS: 93306